=== PATIENT | male | born 1995 | race Caucasian/White ===

== ENCOUNTER 2025-01-05 15:03 | Outpatient (AMB) | payer BC, SELFPAY ==
[2025-01-05 15:22] VITALS: BP 131/61; PULSE 98; RESP 14; TEMP 36.5; O2SAT 99; BMI 34.1
--- NOTE | 2025-01-05 15:22 | A.OFFPC_ITS ---
Vital Signs 01/05/25 15:22 Height 5 ft 9.29 in Weight 233 lb BMI 34.1 BP 131/61 Blood Pressure Location Rt brachial Position Sitting Respiration 14 Pulse 98 Pulse Source Pulse Oximeter Temp 97.7 F Temp Source Temporal Artery Scan Pulse Oximetry (%) 99 Oxygen Delivery Method Room Air Intake Visit Reasons: Establish Care [employer] Architect Required: No Accompanied by: Self / Same As Patient Allergies No Known Allergies Allergy (Verified 01/06/25 15:45) Medication List - Last Reconciled 01/06/25 by Rk Maynard MD No Known Home Meds Tobacco use date assessed: 01/05/25 Dental Screening Dental Screen Date: 01/05/25 Did you have a dental visit in the last 12 months?: Yes Did you have a dental problem in the last 6 months where you did not have access to dental care?: No Was dental information given to patient?: Patient has dentist HPI HPI Comments History of Present Illness Details History of Present Illness - The patient is a 29 year old individua l presenting for a general checkup, which is the patient's first visit to a doctor, prompted by recent episodes of high blood pressure. - The patient reported first checking bl ood pressure at home after feeling unwell and experiencing chest pain, with the reading being 174/98 mmHg. - Two months later, the patient experien luba another episode characterized by dizziness upon standing up from the couch, with a similar blood pressure reading of 174/98 mmHg, and felt as though the patient might faint. - Following the second episode, the stephen ent felt the same the next morning and went to [facility], where the blood pressure was 169/80 mmHg. - This hospital visit occurred last narinder h, on December 09. - At the hospital, blood work was perfor med and was normal, and the blood pressure decreased on its own over four hours without medication. - A review of the hospital records shows an initial reading of 174/97 mmHg and a later reading of 127/92 mmHg. - The patient acknowledges being overwei ght and previously being more active with workouts. - Family history is positive for hyperte nsion in the patient's mother and thyroid disease in both parents. 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 - Family and Living Situation: The patie nt lives with a girlfriend and three children, aged 7, 5, and 3 months. - Substance Use: The patient reports occ asional alcohol use and denies other substance use. - Interpersonal Relationships: The oriana eastman reports having good interpersonal relationships. - Exercise: The patient reports having p reviously worked out a lot, suggesting a recent decrease in physical activity. - Weight: The patient believes to be ove rweight. Results - Labs: Blood work from the hospital vis on December 09 was normal. - Tests and Diagnostics: A review of [facility] records from December 09 showed blood pressure readings of 174/97 mmHg and 127/92 mmHg. PFSH Family History (Updated 01/05/25 @ 15:29 by SELWYN Umaña) Father Diabetes Mother BP (high blood pressure) Family history of thyroid problem Social History (Updated 01/05/25 @ 15:30 by SELWYN Umaña) Housing: House Alcohol intake: current Alcohol intake frequency: holidays/special occasions only Patient Tobacco Use Status: Never used Tobacco service: No Current occupational status: employed Cognitive needs: No Hearing needs: No Vision needs: No Questionnaire Thrive Questionnaire Date Thrive assessed: 01/05/25 I am a: Patient What is your living situation today?: I have a steady place to live Within the past 12 months, did the food you bought not last and you didn't have the money to get more?: Never true Within the past 12 months, did you worry whether your food would run out before you got money to buy more?: Never true Do you have trouble paying for medicines?: No Do you have trouble getting transportation to medical appointments?: No Do you have trouble paying your heating and electricity bill?: No Do you have trouble taking care of your child, family member or friend?: No Do you have trouble with day-to-day activities such as bathing, preparing meals, shopping, managing finances, etc.?: No Are you currently unemployed and looking for a job?: No Are you interested in more education?: No Please select the resources that you would like help with: None THRIVE Score: 0 AUDIT C Alcohol Use Questionnaire (AUDIT-C) 1. How often do you have a drink containing alcohol?: Monthly or less 2. How many drinks containing alcohol do you have on a typical day when you are drinking?: 1 or 2 3. How often do you have six or more drinks on one occasion?: Never Total Score: 1 TEMO-7 AMB Questionnaire TEMO-7 Date TEMO - 7 assessed: 01/05/25 Feeling nervous, anxious, or on edge: 0 = Not at all Not being able to stop or control worryin = Not at all Worrying too much about different things: 0 = Not at all Trouble relaxin = Not at all Being so restless that it is hard to sit still: 0 = Not at all Becoming easily annoyed or irritable: 0 = Not at all Feeling afraid as if something awful might happen: 0 = Not at all Total TEMO-7 score (0-4 normal; 5-9 mild; 10-14 moderate; 15-21 severe): 0 Source: Developed by Drs. Dani Bravo, Kenna Glass, Ryder Ayon and colleagues, with an educational scarlet from [employer]. Review of Systems Narrative Review of Systems - Cardiovascular: Reports a single episode of chest pain and a feeling of a weird heartbeat. - Neurological: Reports episodes of dizziness and feeling faint. - Psychiatric: Denies anxiety, though notes work can be a source of stress. - Constitutional: Reports feeling uncomfortable and not right during symptomatic episodes. Physical exam (Primary Care) Vital Signs: Last Vital Signs Temp 97.7 F 01/05/25 15:22 Pulse 98 01/05/25 15:22 Resp 14 01/05/25 15:22 BP 131/61 01/05/25 15:22 Pulse Ox 99 01/05/25 15:22 Oxygen Delivery Method Room Air 01/05/25 15:22 BMI result Body Mass Index 34.1 Tobacco/Smoking Status: Tobacco use Status Tobacco use date assessed 01/05/25 01/05/25 15:30 Patient Tobacco Use Status Never used Tobacco 01/05/25 15:30 Thrive Assessment: Date of Thrive Assessment Date Thrive assessed 01/05/25 01/05/25 15:30 Narrative Physical Exam General: Cooperative and healthy appearing Nutritional Appearance: Well nourished Orientation/consciousness: Patient oriented x3 Limitations: No limitations Head: Normal to inspection General: Appearance normal, both eyes and all related structures Neck: Normal visual inspection Chest: Normal palpation of entire chest wall Respiratory: Normal respiratory effort Neurology: Patient oriented x3 Office Procedures Flu Questionnaire Does the patient have a severe egg allergy?: No Does the patient have severe life threatening allergies?: No Does the patient have a fever or illness today?: No Has the patient ever had Guillain-Scroggins Syndrome?: No Has the patient ever had any past reaction to a flu shot?: No Immunizations Fluarix [id number] (PF) 45 mcg (15 mcg x 3)/0.5 mL IM syringe Performing Provider: Rk Maynard MD [facility] Administered by: SELWYN Umaña on 01/05/25 15:55 Dose Route Admin Location Dispensed Lot Number Expiration Date [facility] [employer] 0.5 mL IM Left Deltoid 0.5 mL [id number] 08/04/25 [id number] [employer] VIS Given Date VIS Provided VIS Publication Date 01/05/25 Single Vaccine 24 Eligibility Eligibility Date Funding Source Not [facility] Eligible 01/05/25 Private Coding Level of Care Code New Pt Level 4 (91103) Complex visit Add On G2211 Diagnoses Elevated blood pressure reading without diagnosis of hypertension R03.0 Assessment & Plan Assessment & Plan (1) Elevated blood pressure reading without diagnosis of hypertension: Code(s): R03.0 - Elevated blood-pressure reading, without diagnosis of hypertension Plan Plan - Due to the patient's young age, starting antihypertensive medication will be deferred at this time. - The patient will monitor blood pressure at home, taking 10-15 readings over the next two weeks and recording the values. - Additional blood work will be ordered to check cholesterol and thyroid levels to rule out secondary causes of hypertension. - Follow-up is scheduled in two weeks to review the home blood pressure log and laboratory results. - A future follow-up appointment will be arranged for three months from now. Discussion Notes I discussed with the patient that I will be cautious about starting blood pressure medication because the patient is very young, and once started, it is often a lifelong therapy. I explained that the patient's high blood pressure readings are episodic and could be related to anxiety. I instructed the patient to monitor blood pressure at home for the next two weeks, taking 10-15 readings, and to bring the log to the next appointment. I provided specific instructions for accurate measurement, which include sitting with both feet on the ground and the arm resting on a table. I also informed the patient that I will be ordering further blood tests to check cholesterol and thyroid levels. We will re-evaluate the situation and decide on the next steps after reviewing the blood pressure log and lab results in two weeks. Patient Instructions - We are holding off on starting any blood pressure medicine for now because you are young. - You will need to get blood drawn to check your cholesterol and thyroid levels. - Please check your blood pressure at home 10 to 15 times over the next two weeks at any time of day. - When you check it, make sure you are sitting down with both feet on the ground and your arm resting on a table. - Write down the date and the numbers for each reading and bring the list with you to your next visit. - Please schedule a follow-up appointment in two weeks to review your blood pressure readings and lab tests. - The office will also help you schedule an appointment for three months from now. Orders: Orders Complete Blood Count no Diff 01/05/25 R03.0 - Elevated blood-pressure reading, without diagnosis of hypertension Thyroid Stimulating Hormone 01/05/25 R03.0 - Elevated blood-pressure reading, without diagnosis of hypertension Lipid Panel 01/05/25 R03.0 - Elevated blood-pressure reading, without diagnosis of hypertension UA and rflx microscopic 01/05/25 R03.0 - Elevated blood-pressure reading, without diagnosis of hypertension Influenza [id number] Immunization 01/05/25 Z23 - Encounter for immunization
== END 2025-01-05 15:52 | disposition home or self-care (01) ==
LOC: HO.HMCSH 15:03
PROVIDERS: PCP Internal Medicine; Visit Provider Internal Medicine
DX: R03.0 Elevated blood-pressure reading, without diagnosis of hypertension (principal)

== ENCOUNTER → 2025-01-05 15:03 | Outpatient (BNVA) | payer BC, SELFPAY | PROVIDERS: PCP Internal Medicine; Visit Provider Internal Medicine | DX: Z13.39 Encounter for screening examination for other mental health and behavioral disorders (principal); Z23 Encounter for immunization | CPT/HCPCS: 90471; 90656; 96127 ==